=== PATIENT | female | born 1950 | race Caucasian/White ===

== ENCOUNTER → 2018-03-01 | Outpatient (REF) ==
[2018-03-01 16:30] LABS: IRON,SERUM 130 ug/dL (35-150)
[2018-03-01 16:40] LABS: TOTAL IRON BINDING CAPACITY 286 ug/dL (265-497)
== END ==
LOC: ZLAB.WCH 15:52
PROVIDERS: Family Medicine
DX: Z01.89 Encounter for other specified special examinations (principal)